=== PATIENT | female | born 1940 | race Caucasian/White ===

== ENCOUNTER → 2016-06-17 | Outpatient (CLI) | payer MEDICARE, OTHER | LOC: GMAJ 10:46 | PROVIDERS: ATTEND Family Medicine | DX: E03.8 Other specified hypothyroidism (principal) ==

== ENCOUNTER → 2016-11-06 | Outpatient (CLI) | payer MEDICARE, OTHER | END | disposition home or self-care (01) | LOC: GMAJ 10:29 | PROVIDERS: ATTEND Family Medicine | DX: E03.8 Other specified hypothyroidism (principal) ==

== ENCOUNTER → 2017-07-16 | Outpatient (CLI) | payer MEDICARE, OTHER | LOC: GMAJ 10:13 | PROVIDERS: ATTEND Family Medicine | DX: E03.8 Other specified hypothyroidism (principal) ==

== ENCOUNTER → 2018-07-15 | Outpatient (CLI) | payer MEDICARE, OTHER | LOC: GMAJ 11:07 | PROVIDERS: ATTEND Family Medicine | DX: E03.8 Other specified hypothyroidism (principal) ==

== ENCOUNTER → 2018-07-21 | Outpatient (CLI) | payer MEDICARE, OTHER ==
--- NOTE | 2018-07-22 16:14 | MAM ---
EXAM DESCRIPTION: 3D Screening BILATERAL : Digital Mammography. CLINICAL HISTORY: 77 years Female SCREEN . No complaints. No personal history of breast cancer. Mother with breast cancer. Childbirth. Postmenopausal 29 years. Hormone replacement 5 or more years ago. Prior benign left breast biopsy. Lifetime risk of developing breast cancer (Tyrer-Cuzick model)(%): 5.6. COMPARISON: 2-D digital screening bilateral mammography July 22, 2015.. TECHNIQUE: Bilateral CC and MLO projection full-field images, digital tomosynthesis mammographic technique. Bilateral digital 2-D full-field MLO images. CAD not available for tomosynthesis or 2-D images. FINDINGS: The breast parenchymal density pattern is: Scattered areas of fibroglandular density. No skin thickening or nipple retraction. Bilateral vascular calcifications. Bilateral solitary microcalcifications. Slight increase in calcifications bilaterally.. No new focal, stellate mass or density, focal asymmetry , and no suspicious microcalcifications bilaterally. Stable mammograms compared to prior study. Taking into account, differences in mammographic technique. IMPRESSION: Benign exam. BIRAD CATEGORY: 2 BENIGN FINDINGS. RECOMMENDATIONS: FOLLOW UP: Routine digital bilateral mammographic screening, one year interval from June 2018. Written communication explaining the IMPRESSION and follow-up, will be mailed to the patient and referring health care provider. According to the [employer], yearly mammograms are recommended starting at age 40 and continuing as long as a woman is in good health. Any breast change noted on a breast self-exam should be reported promptly to the patient's healthcare provider. Breast MRI is recommended for women with an approximately 20-25% or greater lifetime risk of breast cancer, including women with a strong family history of breast or ovarian cancer and women who have been treated for Hodgkin's disease. A negative mammographic report should not delay tissue diagnosis in patients with significant clinical history or physical findings. Extremely dense breast tissue limits the sensitivity of digital mammography. Electronically signed by: Genaro Uriostegui MD 07/22/2018 4:11 PM WHISKEY REGAUGER
== END ==
LOC: MAMMO 10:30
PROVIDERS: ATTEND Family Medicine
DX: Z12.31 Encounter for screening mammogram for malignant neoplasm of breast (principal)

== ENCOUNTER 2018-08-06 21:09 | Emergency (ER) | payer MEDICARE, OTHER ==
--- NOTE | 2018-08-06 22:25 | ED.PDOC ---
History of Present Illness - General Chief Complaint: Blood Pressure Problem Time Seen by Provider: 08/06/18 22:19 Source: patient, RN notes reviewed, Vital Signs reviewed Exam Limitations: no limitations - History of Present Illness Initial Comments: c/o high BP at approx 1930 tonight with SBP peaking around 180. Her face felt flushed & she had generalized weakness for about 45 minutes. Otherwise no other symptoms. Feels better now. No missed meds or dose changes. Was working out in the yard earlier today. Severity: moderate Improving Factors: nothing Worsening Factors: nothing Associated Symptoms: weakness Allergies/Adverse Reactions: Allergies Codeine Allergy (Verified 02/14/16 01:18) Doxycycline [From Vibramycin] Allergy (Verified 02/14/16 01:18) Fenofibrate [From Tricor] Allergy (Verified 02/14/16 01:18) Penicillins Allergy (Verified 02/14/16 01:18) Simvastatin [From Zocor] Allergy (Verified 02/14/16 01:18) Streptomycin Allergy (Verified 02/14/16 01:18) Verapamil Allergy (Verified 02/14/16 01:18) Home Medications: Ambulatory Orders Buspirone HCl 5 mg PO BID 06/24/12 Esomeprazole Magnesium [Nexium] 40 mg PO DAILY 06/24/12 l-Methylfolate W/ Vitamin B6-V [Metanx] 1 ea PO BEDTIME 06/24/12 Irbesartan-Hydrochlorothiazide [Avalide 300-12.5 mg] 1 tab PO DAILY 11/28/13 Levothyroxine Sodium [Synthroid] 88 mcg PO DAILY 11/28/13 ALPRAZolam [Xanax] 0.25 mg PO TID PRN 02/06/15 Cetirizine HCl Syrup [Zyrtec Syrup] 2 tsp PO PRN PRN 02/06/15 Cephalexin Monohydrate [Keflex] 500 mg PO QID #40 cap 02/14/16 Review of Systems - Review of Systems Constitutional: States: see HPI EENTM: States: no symptoms reported Respiratory: States: no symptoms reported Cardiology: States: no symptoms reported Gastrointestinal/Abdominal: States: no symptoms reported Genitourinary: States: no symptoms reported Musculoskeletal: States: no symptoms reported Skin: States: no symptoms reported Neurological: States: see HPI Endocrine: States: no symptoms reported Hematologic/Lymphatic: States: no symptoms reported Past Medical History (General) - Patient Medical History Hx Seizures: No Hx Stroke: No Hx Dementia: No Hx Asthma: No Hx of COPD: No Hx Cardiac Disorders: No Hx Congestive Heart Failure: No Hx Pacemaker: No Hx Hypertension: Yes Hx Thyroid Disease: Yes Hx Diabetes: No Hx Gastroesophageal Reflux: No Hx Renal Disease: No Hx Cancer: Yes - leukemia Hx of HIV: No Hx Hepatitis C: No Hx MRSA: No - Vaccination History Hx Tetanus, Diphtheria Vaccination: No Hx Influenza Vaccination: No Hx Pneumococcal Vaccination: Yes - Social History Hx Tobacco Use: No Hx Chewing Tobacco Use: No Hx Alcohol Use: No Hx Substance Use: No Hx Substance Use Treatment: No Hx Depression: No Hx Physical Abuse: No Hx Emotional Abuse: No Hx Suspected Abuse: No - Female History Patient : No Family Medical History - Family History Father Living Status: Hx Family Diabetes: Yes Hx Family Cancer: Yes Physical Exam - Physical Exam General Appearance: Alert, Comfortable, No apparent distress Ears, Nose, Throat: hearing grossly normal, other - moist mucosa Neck: supple, normal inspection Respiratory: lungs clear, normal breath sounds Cardiovascular/Chest: regular rate, rhythm, no edema, no JVD Gastrointestinal/Abdominal: non tender, soft, no organomegaly Extremity: normal range of motion, normal inspection, no pedal edema 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 Feels well. SBP 156. We discussed her presentation & options for treatment this weekend. She declines alteration of her meds. She will f/u with Dr. Sanders on Wednesday. - Results/Orders Results/Orders: K 3.3 Glu 133 Tr nml - EKG/XRAY/CT EKG: Sinus, no ST T wave changes - NSR at 85; nml axis, intervals, ST segments & Twaves; poor R wave progression Departure - Departure Clinical Impression: Essential hypertension, Hypokalemia, Weakness Time of Disposition: 23:19 Disposition: Discharge to Home or Self Care Condition: Good Departure Forms: ED Discharge - Pt. Copy, Patient Portal Self Enrollment Instructions: DI for High Blood Pressure Referrals: Jhony Sanders MD [Primary Care Provider] - 08/08/18 Home Medications: Ambulatory Orders Buspirone HCl 5 mg PO BID 06/24/12 Esomeprazole Magnesium [Nexium] 40 mg PO DAILY 06/24/12 l-Methylfolate W/ Vitamin B6-V [Metanx] 1 ea PO BEDTIME 06/24/12 Irbesartan-Hydrochlorothiazide [Avalide 300-12.5 mg] 1 tab PO DAILY 11/28/13 Levothyroxine Sodium [Synthroid] 88 mcg PO DAILY 11/28/13 ALPRAZolam [Xanax] 0.25 mg PO TID PRN 02/06/15 Cetirizine HCl Syrup [Zyrtec Syrup] 2 tsp PO PRN PRN 02/06/15 Cephalexin Monohydrate [Keflex] 500 mg PO QID #40 cap 02/14/16
[2018-08-06] MEDS ORDERED: POTASSIUM CHLORIDE 20 MEQ TAB PO ONE (23:14)
[2018-08-06 23:19] VITALS: TEMP 98.6
[2018-08-06 23:25] VITALS: BP 170/69; O2SAT 97
== END 2018-08-06 23:26 | disposition home or self-care (01) ==
LOC: ER 21:09
DX: I10 Essential (primary) hypertension (principal); E87.6 Hypokalemia; R53.1 Weakness; E07.9 Disorder of thyroid, unspecified; Z79.899 Other long term (current) drug therapy; Z85.6 Personal history of leukemia; Z88.5 Allergy status to narcotic agent; Z88.1 Allergy status to other antibiotic agents; Z88.0 Allergy status to penicillin

== ENCOUNTER → 2018-11-01 | Outpatient (CLI) | payer MEDICARE, OTHER ==
--- NOTE | 2018-11-02 09:03 | CT ---
EXAM: Abdoment/Pelvis w/o Contrast CLINICAL HISTORY: Asymptomatic microscopic hematuria COMPARISON STUDY: CT abdomen pelvis with contrast April 15, 2014 TECHNIQUE: Non-oral, non-IV contrast CT images were obtained through the abdomen and pelvis. Coronal reconstructions were acquired. FINDINGS: The visible portion of the chest shows clear lungs. The heart is not enlarged. The aorta is non-dilated. Solid organ evaluation is limited without IV contrast administration. The unenhanced images of the liver, spleen, pancreas, adrenal glands and kidneys demonstrate no visible abnormality. The gallbladder is absent. Bowel evaluation is limited without oral contrast administration. There is no bowel obstruction/dilatation. The appendix is visible and negative. There are no mesenteric inflammatory changes. The aorta is not dilated and has moderate calcified atherosclerotic plaque. If inferior vena cava and retroperitoneum are negative. There is no lymphadenopathy in the retroperitoneum, pelvis, mesentery or inguinal regions. The uterus is absent. There is a circumscribed low density in the left adnexa that measures 4.4 x 3.6 cm and has internal Hounsfield density measurement of less than 2. This is consistent with a benign ovarian cyst although slightly larger than 2014. There are no blastic or lytic osseous lesions. Moderate degenerative disc changes are present in the lower thoracic and lower lumbar spine. CONCLUSION: 1. No acute abnormality. No lymphadenopathy. 2. Degenerative changes of the lower thoracic and lower lumbar spine. 3. Slight enlargement of the left ovarian cyst requires no further imaging evaluation. This exam was performed according to our departmental dose-optimization program, which includes automated exposure control, adjustment of the mA and/or kV according to patient size and/or use of iterative reconstruction technique. . Electronically signed by: Corbin Graham MD 11/02/2018 9:01 AM CDT
== END ==
LOC: CT 09:00
PROVIDERS: ATTEND Family Medicine
DX: R31.21 Asymptomatic microscopic hematuria (principal); N83.202 Unspecified ovarian cyst, left side; M51.34 Other intervertebral disc degeneration, thoracic region; M51.36 Other intervertebral disc degeneration, lumbar region

== ENCOUNTER 2019-04-15 02:50 | Emergency (ER) | payer MEDICARE, OTHER ==
[2019-04-15 03:06] VITALS: TEMP 97.5
[2019-04-15] MEDS ORDERED: SODIUM CHLORIDE 0.9% 1000ML 1,000 ML IVS PRN (03:33)
--- NOTE | 2019-04-15 03:39 | ED.PDOC ---
History of Present Illness - General Chief Complaint: Trauma Stated Complaint: fell, unable to void, dizzy Time Seen by Provider: 04/15/19 03:25 Source: patient, RN notes reviewed, Vital Signs reviewed, family Exam Limitations: no limitations - History of Present Illness Initial Comments: Pt states she has had urinary frequency, dysuria and urgency for 3 days. She was seen in clinic for this yesterday and diagnosed with UTI and placed on antibiotics. 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 On the way back to bed she felt dizzy and stumbled over a portable heater on the ground and fell. Denies LOC. Has laceration to right forehead and pain to right cheek area. Denies OVALLE, neck pain or back pain. Denies chest pain, palpitations, SOB prior to falling. Unknown last tetanus. Allergies/Adverse Reactions: Allergies Azithromycin [From Z-Farhad] Allergy (Verified 04/15/19 04:09) Hives Codeine Allergy (Verified 04/15/19 04:09) Doxycycline [From Vibramycin] Allergy (Verified 04/15/19 04:09) Fenofibrate [From Tricor] Allergy (Verified 04/15/19 04:09) Penicillins Allergy (Verified 04/15/19 04:09) Simvastatin [From Zocor] Allergy (Verified 04/15/19 04:09) Streptomycin Allergy (Verified 04/15/19 04:09) Verapamil Allergy (Verified 04/15/19 04:09) Home Medications: Ambulatory Orders Buspirone HCl 5 mg PO BID 06/24/12 Irbesartan-Hydrochlorothiazide [Avalide 300-12.5 mg] 1 tab PO DAILY 11/28/13 Levothyroxine Sodium [Synthroid] 88 mcg PO DAILY 11/28/13 ALPRAZolam [Xanax] 0.25 mg PO TID PRN 02/06/15 Albuterol 2 mg/5 ml [Proventil] 60 ml PO 04/15/19 Carvedilol 3.125 mg PO BID 04/15/19 Folic Acid-Vitamin B6-Vitamin [Folbee 2.5-25-1 mg] DAILY 04/15/19 Montelukast [Singulair] 10 mg PO DAILY 04/15/19 Pantoprazole Sodium 40 mg PO DAILY 04/15/19 Review of Systems - Review of Systems Constitutional: Denies: chills, fever, weakness EENTM: Denies: blurred vision, nose congestion, throat pain Respiratory: Denies: cough, short of breath, stridor Cardiology: Denies: chest pain, edema, palpitations, syncope Gastrointestinal/Abdominal: States: nausea. Denies: abdominal pain, vomiting Genitourinary: States: dysuria, frequency, hematuria Musculoskeletal: Denies: back pain Skin: States: other - forehead laceration Neurological: Denies: anxiety, headache, weakness Endocrine: States: no symptoms reported Hematologic/Lymphatic: States: no symptoms reported All other Systems: Reviewed and Negative Past Medical History (General) - Patient Medical History Hx Seizures: No Hx Stroke: No Hx Dementia: No Hx Asthma: No Hx of COPD: No Hx Cardiac Disorders: No Hx Congestive Heart Failure: No Hx Pacemaker: No Hx Hypertension: Yes Hx Thyroid Disease: Yes - removed Hx Diabetes: No Hx Gastroesophageal Reflux: No Hx Renal Disease: No Hx Cancer: Yes - leukemia Hx of HIV: No Hx Hepatitis C: No Hx MRSA: No - Vaccination History Hx Tetanus, Diphtheria Vaccination: No Hx Influenza Vaccination: No Hx Pneumococcal Vaccination: Yes - Social History Hx Tobacco Use: No Hx Chewing Tobacco Use: No Hx Alcohol Use: No Hx Substance Use: No Hx Substance Use Treatment: No Hx Depression: No Hx Physical Abuse: No Hx Emotional Abuse: No Hx Suspected Abuse: No - Female History Patient : No - Triage Comment ED Triage Comment: Pt reports she has been having trouble voiding for last 2-3 days. Pt was seen in [facility] yesterday and was told she has a UTI. She states she is still having trouble voiding and getting dizzy and nauseated. Pt got up to BR this a.m., she was dizzy lost her balance and fell hitting her head on edge of dresser. Pt obtained a 2cm superficial lac to Rt eyebrow, and has a smal circular bruise to cheekbone area. Family Medical History - Family History Father Living Status: Hx Family Diabetes: Yes Hx Family Cancer: Yes Physical Exam - Physical Exam General Appearance: Alert, Comfortable, No apparent distress, Well Groomed Eye Exam: bilateral normal - PERRL, EOMI Ears, Nose, Throat: other - No dental pain. No intraoral injury seen. TTP right maxilla umder right eye Neck: non-tender, full range of motion, supple, other - No C, T, L spine tenderness Respiratory: chest non-tender, lungs clear, normal breath sounds, no respiratory distress, no accessory muscle use Cardiovascular/Chest: regular rate, rhythm, no edema, no murmur Gastrointestinal/Abdominal: non tender, soft, no pulsatile mass Back Exam: normal inspection, no CVA tenderness, no vertebral tenderness Extremity: normal range of motion, non-tender, other - FROM in all extremities w/o pain. 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 No active bleeding Progress - Progress Progress: 04/15/19 05:49 Pt presents for fall at home. Has had urinary frequency and urgency for a few days and started on abx for UTI in clinic. Tonight, she became dizzy walking back from bathroom and tripped over heated and fell. CT's performed to evaluate for ICH and fracture and are negative. Labs reassuring. I have irrigated and approximated laceration. Pt is ambulatory in ED without difficulty and feels comfortable going home. She is urinating well with no signs of urinary retention on bedside US. Will f/u with pcp in 1-2 days for recheck. SRP given. - Results/Orders Results/Orders: CLINICAL HISTORY: The patient is 78 years old and is Female; trauma TECHNIQUE: Axial computed tomography images of the head/brain without intravenous contrast. Sagittal and coronal reformatted images were created and reviewed. This CT exam was performed using one or more of the following dose reduction techniques: automated exposure control, adjustment of the mA and/or kV according to patient size, and/or use of iterative reconstruction technique. COMPARISON: No relevant prior studies available. FINDINGS: BRAIN: Unremarkable. The mendoza-white matter differentiation is preserved . No hemorrhage. No significant white matter disease. No edema. No extra-axial fluid collections. VENTRICLES: Unremarkable. No ventriculomegaly. BONES/JOINTS: No acute fracture. SOFT TISSUES: Unremarkable. SINUSES: Unremarkable as visualized. No acute sinusitis. MASTOID AIR CELLS: Unremarkable as visualized. No mastoid effusion. ORBITS: Unremarkable as visualized. IMPRESSION: No acute intracranial findings. EXAM: CT Cervical Spine Without Intravenous Contrast CLINICAL HISTORY: The patient is 78 years old and is Female; trauma TECHNIQUE: Axial computed tomography images of the cervical spine without intravenous contrast. Sagittal and coronal reformatted images were created and reviewed. This CT exam was performed using one or more of the following dose reduction techniques: automated exposure control, adjustment of the mA and/or kV according to patient size, and/or use of iterative reconstruction technique. COMPARISON: No relevant prior studies available. FINDINGS: VERTEBRAE: The vertebral body heights and alignment are maintained. No acute fracture. DISCS/SPINAL CANAL/NEURAL FORAMINA: Mild multilevel degenerative change of the spine with osteophyte formation and intervertebral disc space narrowing is present. There is no significant canal stenosis. SOFT TISSUES: The soft tissues are normal. LUNG APICES: The lung apices are clear. IMPRESSION: No fracture or malalignment of the cervical spine. EXAM: XR Chest, 1 View CLINICAL HISTORY: The patient is 78 years old and is Female; dizzy TECHNIQUE: Frontal view of the chest. COMPARISON: No relevant prior studies available. FINDINGS: LUNGS: Unremarkable. No consolidation. PLEURAL SPACE: Unremarkable. No pneumothorax. HEART: Unremarkable. No cardiomegaly. MEDIASTINUM: Unremarkable. BONES/JOINTS: Unremarkable. IMPRESSION: No acute cardiopulmonary process. EXAM: CT Maxillofacial Without Intravenous Contrast CLINICAL HISTORY: The patient is 78 years old and is Female; trauma TECHNIQUE: Axial computed tomography images of the face without intravenous contrast. Sagittal and coronal reformatted images were created and reviewed. This CT exam was performed using one or more of the following dose reduction techniques: automated exposure control, adjustment of the mA and/or kV according to patient size, and/or use of iterative reconstruction technique. COMPARISON: No relevant prior studies available. FINDINGS: BONES/JOINTS: The orbital floors and palomino are intact. The zygomatic arches and pterygoid plates are intact. The visualized maxilla and mandible are intact. SOFT TISSUES: Minimal right cheek soft tissue swelling is present. ORBITS: The globes, extraocular muscles, and optic nerve complexes are within normal limits. SINUSES: The visualized paranasal sinuses are clear. No air-fluid levels. NASAL CAVITY/SEPTUM: The nasal bones are intact. IMPRESSION: No acute facial fracture. Minimal right cheek soft tissue swelling. 04/15/19 03:32 Nurse to gather supplies .ONCE Wound/Incision:Care PRN 04/15/19 03:33 Sodium Chloride 0.9% 1000ML [Ns 1000 ml] 1,000 ml IVS .QD 04/15/19 03:45 EKG .ONCE Laboratory Results - last 24 hr 04/15/19 04/15/19 04/15/19 03:25 03:40 03:40 WBC 5.4 RBC 3.48 L Hgb 10.7 L Hct 30.6 L MCV 87.9 MCH 30.7 MCHC 34.9 RDW 13.7 Plt Count 146 MPV 7.4 Absolute Neuts (auto) 4.40 Absolute Lymphs (auto) 0.50 L Absolute Monos (auto) 0.40 Absolute Eos (auto) 0.10 Absolute Basos (auto) 0.00 Neutrophils % 82.1 H Lymphocytes % 9.7 L Monocytes % 6.5 Eosinophils % 1.2 Basophils % 0.5 Sodium 134 L Potassium 3.4 L Chloride 95 L Carbon Dioxide 24 Anion Gap 18.4 H BUN 14 Creatinine 1.05 BUN/Creatinine Ratio 13.3 Random Glucose 142 H Serum Osmolality 271.1 L Calcium 9.0 Total Bilirubin 1.8 H AST 25 ALT 19 Alkaline Phosphatase 67 Troponin I Serum Total Protein 7.3 Albumin 3.9 Globulin 3.4 Albumin/Globulin Ratio 1.1 Urine Color Dk yellow H Urine Appearance Clear Urine pH 6.5 Ur Specific [place] 1.025 Urine Protein 30 Urine Glucose (UA) Negative Urine Ketones 15 H Urine Blood Moderate H Urine Nitrite Negative Urine Bilirubin Moderate Urine Urobilinogen 1.0 Ur Leukocyte Esterase Negative Urine RBC 5-10 H Urine WBC 1-3 Ur Epithelial Cells 0-1 Urine Bacteria Rare Urine Mucus Trace 04/15/19 03:40 WBC RBC Hgb Hct MCV MCH MCHC RDW Plt Count MPV Absolute Neuts (auto) Absolute Lymphs (auto) Absolute Monos (auto) Absolute Eos (auto) Absolute Basos (auto) Neutrophils % Lymphocytes % Monocytes % Eosinophils % Basophils % Sodium Potassium Chloride Carbon Dioxide Anion Gap BUN Creatinine BUN/Creatinine Ratio Random Glucose Serum Osmolality Calcium Total Bilirubin AST ALT Alkaline Phosphatase Troponin I 0.02 Serum Total Protein Albumin Globulin Albumin/Globulin Ratio Urine Color Urine Appearance Urine pH Ur Specific [place] Urine Protein Urine Glucose (UA) Urine Ketones Urine Blood Urine Nitrite Urine Bilirubin Urine Urobilinogen Ur Leukocyte Esterase Urine RBC Urine WBC Ur Epithelial Cells Urine Bacteria Urine Mucus - EKG/XRAY/CT EKG: Sinus Comments: nsr, rate 71, normal intervals, no ST abnormality Procedures - Laceration/Wound Repair Right Face Wound Length (cm): 2 Wound's Depth, Shape: superficial, linear Wound Explored: clean Irrigated w/ Saline (cc's): 20 Betadine Prep?: No Wound Repaired With: dermabond Progress: 2 cm linear superficial laceration that is horizontal and at level of eyebrow. Irrigated and approximated with dermabond with no complications. Departure - Departure Clinical Impression: Dizziness Closed head injury Qualifiers: Encounter type: initial encounter Qualified Code(s): S09.90XA - Unspecified injury of head, initial encounter Facial laceration Qualifiers: Encounter type: initial encounter Qualified Code(s): S01.81XA - Laceration without foreign body of other part of head, initial encounter Fall Qualifiers: Encounter type: initial encounter Qualified Code(s): W19.XXXA - Unspecified fall, initial encounter Time of Disposition: 05:52 Disposition: Discharge to Home or Self Care Condition: Good Departure Forms: ED Discharge - Pt. Copy, Patient Portal Self Enrollment Instructions: DI for Trauma, Laceration Repair With Glue (DC) Diet: resume usual diet Activity: increase activity as tolerated Referrals: Jhony Sanders MD [Primary Care Provider] - 1-2 Days Home Medications: Ambulatory Orders Buspirone HCl 5 mg PO BID 06/24/12 Irbesartan-Hydrochlorothiazide [Avalide 300-12.5 mg] 1 tab PO DAILY 11/28/13 Levothyroxine Sodium [Synthroid] 88 mcg PO DAILY 11/28/13 ALPRAZolam [Xanax] 0.25 mg PO TID PRN 02/06/15 Albuterol 2 mg/5 ml [Proventil] 60 ml PO 04/15/19 Carvedilol 3.125 mg PO BID 04/15/19 Folic Acid-Vitamin B6-Vitamin [Folbee 2.5-25-1 mg] DAILY 04/15/19 Montelukast [Singulair] 10 mg PO DAILY 04/15/19 Pantoprazole Sodium 40 mg PO DAILY 04/15/19 Comments: Continue your antibiotic for urine infection
--- NOTE | 2019-04-15 04:56 | CT ---
EXAM: CT Cervical Spine Without Intravenous Contrast CLINICAL HISTORY: The patient is 78 years old and is Female; trauma TECHNIQUE: Axial computed tomography images of the cervical spine without intravenous contrast. Sagittal and coronal reformatted images were created and reviewed. This CT exam was performed using one or more of the following dose reduction techniques: automated exposure control, adjustment of the mA and/or kV according to patient size, and/or use of iterative reconstruction technique. COMPARISON: No relevant prior studies available. FINDINGS: VERTEBRAE: The vertebral body heights and alignment are maintained. No acute fracture. DISCS/SPINAL CANAL/NEURAL FORAMINA: Mild multilevel degenerative change of the spine with osteophyte formation and intervertebral disc space narrowing is present. There is no significant canal stenosis. SOFT TISSUES: The soft tissues are normal. LUNG APICES: The lung apices are clear. IMPRESSION: No fracture or malalignment of the cervical spine. Electronically signed by: Jillian Tobias MD 04/15/2019 4:54 AM DIVIDER OPERATOR
--- NOTE | 2019-04-15 04:57 | CT ---
EXAM: CT Head Without Intravenous Contrast CLINICAL HISTORY: The patient is 78 years old and is Female; trauma TECHNIQUE: Axial computed tomography images of the head/brain without intravenous contrast. Sagittal and coronal reformatted images were created and reviewed. This CT exam was performed using one or more of the following dose reduction techniques: automated exposure control, adjustment of the mA and/or kV according to patient size, and/or use of iterative reconstruction technique. COMPARISON: No relevant prior studies available. FINDINGS: BRAIN: Unremarkable. The mendoza-white matter differentiation is preserved . No hemorrhage. No significant white matter disease. No edema. No extra-axial fluid collections. VENTRICLES: Unremarkable. No ventriculomegaly. BONES/JOINTS: No acute fracture. SOFT TISSUES: Unremarkable. SINUSES: Unremarkable as visualized. No acute sinusitis. MASTOID AIR CELLS: Unremarkable as visualized. No mastoid effusion. ORBITS: Unremarkable as visualized. IMPRESSION: No acute intracranial findings. Electronically signed by: Jillian Tobias MD 04/15/2019 4:56 AM [facility]
--- NOTE | 2019-04-15 04:58 | CT ---
EXAM: CT Maxillofacial Without Intravenous Contrast CLINICAL HISTORY: The patient is 78 years old and is Female; trauma TECHNIQUE: Axial computed tomography images of the face without intravenous contrast. Sagittal and coronal reformatted images were created and reviewed. This CT exam was performed using one or more of the following dose reduction techniques: automated exposure control, adjustment of the mA and/or kV according to patient size, and/or use of iterative reconstruction technique. COMPARISON: No relevant prior studies available. FINDINGS: BONES/JOINTS: The orbital floors and palomino are intact. The zygomatic arches and pterygoid plates are intact. The visualized maxilla and mandible are intact. SOFT TISSUES: Minimal right cheek soft tissue swelling is present. ORBITS: The globes, extraocular muscles, and optic nerve complexes are within normal limits. SINUSES: The visualized paranasal sinuses are clear. No air-fluid levels. NASAL CAVITY/SEPTUM: The nasal bones are intact. IMPRESSION: No acute facial fracture. Minimal right cheek soft tissue swelling. Electronically signed by: Jillian Tobias MD 04/15/2019 4:57 AM [facility]
--- NOTE | 2019-04-15 04:59 | RAD ---
EXAM: XR Chest, 1 View CLINICAL HISTORY: The patient is 78 years old and is Female; dizzy TECHNIQUE: Frontal view of the chest. COMPARISON: No relevant prior studies available. FINDINGS: LUNGS: Unremarkable. No consolidation. PLEURAL SPACE: Unremarkable. No pneumothorax. HEART: Unremarkable. No cardiomegaly. MEDIASTINUM: Unremarkable. BONES/JOINTS: Unremarkable. IMPRESSION: No acute cardiopulmonary process. Electronically signed by: Jillian Tobias MD 04/15/2019 4:57 AM [facility]
[2019-04-15 05:05] VITALS: BP 115/99
[2019-04-15 05:09] VITALS: O2SAT 99
== END 2019-04-15 06:05 | disposition home or self-care (01) ==
LOC: ER 02:50
DX: S09.90XA Unspecified injury of head, initial encounter (principal); S01.111A Laceration without foreign body of right eyelid and periocular area, initial encounter; R42 Dizziness and giddiness; N39.0 Urinary tract infection, site not specified; I10 Essential (primary) hypertension; E89.0 Postprocedural hypothyroidism; Z85.6 Personal history of leukemia; Z79.899 Other long term (current) drug therapy; Z88.8 Allergy status to other drugs, medicaments and biological substances; Z88.1 Allergy status to other antibiotic agents; Z88.5 Allergy status to narcotic agent; Z88.0 Allergy status to penicillin; W01.0XXA Fall on same level from slipping, tripping and stumbling without subsequent striking against object, initial encounter; Y92.9 Unspecified place or not applicable
CPT/HCPCS: 70450; 70486; 71045; 72125; 80053; 81001; 84484; 85025; 93005; J7030

== ENCOUNTER → 2019-04-28 | Outpatient (CLI) | payer MEDICARE, OTHER | LOC: GMAJ 10:20 | PROVIDERS: ATTEND Family Medicine | DX: E03.8 Other specified hypothyroidism (principal); E78.00 Pure hypercholesterolemia, unspecified; I10 Essential (primary) hypertension ==

== ENCOUNTER → 2019-10-30 | Outpatient (CLI) | payer MEDICARE, OTHER | LOC: GMAJ 11:13 | PROVIDERS: ATTEND Family Medicine | DX: E03.8 Other specified hypothyroidism (principal); I10 Essential (primary) hypertension ==

== ENCOUNTER 2020-03-04 04:31 | Emergency (ER) | payer MEDICARE, OTHER ==
--- NOTE | 2020-03-04 04:55 | ED.PDOC ---
History of Present Illness - General Chief Complaint: Respiratory Problem Stated Complaint: test COVID + 2 days ago, lungs hurt Time Seen by Provider: 03/04/20 04:31 Source: patient, RN notes reviewed, Vital Signs reviewed Exam Limitations: no limitations - History of Present Illness Initial Comments: 79 yo F with hx of HTN and hypothyroid comes in with chc of right sided upper backpain. Was diagnosed with covid 2 days ago, but has been symptomatic since the 3rd - aprx 9 days. Denies cough or shortness of breath. no chest pain. Had a fever 103. no n/v, but does have diarrhea. she wanted to make sure her lungs were okay. Allergies/Adverse Reactions: Allergies Azithromycin [From Z-Farhad] Allergy (Verified 04/15/19 04:09) Hives Codeine Allergy (Verified 04/15/19 04:09) Doxycycline [From Vibramycin] Allergy (Verified 04/15/19 04:09) Fenofibrate [From Tricor] Allergy (Verified 04/15/19 04:09) Penicillins Allergy (Verified 04/15/19 04:09) Simvastatin [From Zocor] Allergy (Verified 04/15/19 04:09) Streptomycin Allergy (Verified 04/15/19 04:09) Verapamil Allergy (Verified 04/15/19 04:09) Home Medications: Ambulatory Orders Buspirone HCl 5 mg PO BID 06/24/12 Irbesartan-Hydrochlorothiazide [Avalide 300-12.5 mg] 1 tab PO DAILY 11/28/13 Levothyroxine Sodium [Synthroid] 88 mcg PO DAILY 11/28/13 ALPRAZolam [Xanax] 0.25 mg PO TID PRN 02/06/15 Albuterol 2 mg/5 ml [Proventil] 60 ml PO 04/15/19 Carvedilol 3.125 mg PO BID 04/15/19 Folic Acid-Vitamin B6-Vitamin [Folbee 2.5-25-1 mg] DAILY 04/15/19 Montelukast [Singulair] 10 mg PO DAILY 04/15/19 Pantoprazole Sodium 40 mg PO DAILY 04/15/19 Magnesium Oxide 400 mg PO DAILY #14 cap 03/04/20 Potassium Chloride Elixir [Kaochlor Liquid] 20 meq PO DAILY #300 ml 03/04/20 Review of Systems - Review of Systems Constitutional: States: chills, fever, malaise EENTM: Denies: eye pain, double vision, throat pain, throat swelling, mouth pain, mouth swelling Respiratory: Denies: cough, short of breath Cardiology: Denies: chest pain, palpitations, syncope Gastrointestinal/Abdominal: States: diarrhea. Denies: abdominal pain, nausea, vomiting Genitourinary: Denies: dysuria, frequency, hematuria Musculoskeletal: States: back pain. Denies: joint swelling, muscle pain, muscle stiffness, neck pain Skin: Denies: rash Neurological: Denies: headache, numbness, paresthesia, seizure, weakness Endocrine: Denies: increased urine, unexplained weight gain, unexplained weight loss Hematologic/Lymphatic: Denies: blood clots, easy bleeding, easy bruising Past Medical History (General) - Patient Medical History Hx Seizures: No Hx Stroke: No Hx Dementia: No Hx Asthma: No Hx of COPD: No Hx Cardiac Disorders: No Hx Congestive Heart Failure: No Hx Pacemaker: No Hx Hypertension: Yes Hx Thyroid Disease: Yes - removed Hx Diabetes: No Hx Gastroesophageal Reflux: No Hx Renal Disease: No Hx Cancer: Yes - leukemia Hx of HIV: No Hx Hepatitis C: No Hx MRSA: No - Vaccination History Hx Tetanus, Diphtheria Vaccination: No Hx Influenza Vaccination: Yes Hx Pneumococcal Vaccination: No - Social History Hx Tobacco Use: Yes Hx Chewing Tobacco Use: No Hx Alcohol Use: No Hx Substance Use: No Hx Substance Use Treatment: No Hx Depression: No Hx Physical Abuse: No Hx Emotional Abuse: No Hx Suspected Abuse: No - Female History Patient : No Family Medical History - Family History Father Living Status: Hx Family Diabetes: Yes Hx Family Cancer: Yes Physical Exam - Physical Exam General Appearance: Alert, Comfortable, No apparent distress, Well Developed, Well Groomed, Well Hydrated, Well Nourished Ears, Nose, Throat: hearing grossly normal, normal ENT inspection, normal pharynx Neck: non-tender, full range of motion, supple Respiratory: chest non-tender, lungs clear, normal breath sounds, no respiratory distress, no accessory muscle use Cardiovascular/Chest: normal peripheral pulses, regular rate, rhythm, no edema, no gallop, no JVD, no murmur Peripheral Pulses: radial,right: 2+, radial,left: 2+ Gastrointestinal/Abdominal: normal bowel sounds, non tender, soft Rectal Exam: deferred Back Exam: normal inspection, no CVA tenderness, no vertebral tenderness, other - right paravertebral tenderness on upper throacic. 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 Will give some magnesium for muscle pain. will check cxr to make sure she doesn't have a super imposed bacteria pneumonia. 03/04/20 06:07 due to pain being on right, not having worsening cough or shortness of breath and already being treated for pneumonia will not prescribe levaquin at this time. VSS. The data reviewed when caring for this patient included: nurse notes, prior records, etc. The history and assessments from nurses notes were reviewed and considered, and the patient's home medication list was also reviewed and considered. My assessment and the results of testing completed here in the ED were discussed with the patient. All questions were answered, and they express understanding of my assessment and the plan. She have been instructed to return if their symptoms worsen, and have been asked to follow up with their primary care physician to recheck today's presenting complaint. Strict return precautions given. I have reviewed medication, benefits, alternatives and side effects. Patient decided to proceed with medication.patient discharged home in stable condition. Elmira Gale DO #[id number] - Results/Orders Results/Orders: Laboratory Results WBC 7.5 K/mm3 (4.8-10.8) 03/04/20 05:07 RBC 3.32 M/mm3 (4.20-5.40) L 03/04/20 05:07 Hgb 10.2 gm/dL (12.0-16.0) L 03/04/20 05:07 Hct 29.2 % (36.0-47.0) L 03/04/20 05:07 MCV 88.2 fl (81.0-99.0) 03/04/20 05:07 MCH 30.8 pg (27.0-31.0) 03/04/20 05:07 MCHC 34.9 g/dL (33.0-37.0) 03/04/20 05:07 RDW 14.3 % (11.5-14.5) 03/04/20 05:07 Plt Count 149 K/mm3 (130-400) 03/04/20 05:07 MPV 6.6 fl (7.40-10.4) L 03/04/20 05:07 Absolute Neuts (auto) 6.70 K/uL (1.8-6.8) 03/04/20 05:07 Absolute Lymphs (auto) 0.60 K/uL (1.0-3.4) L 03/04/20 05:07 Absolute Monos (auto) 0.20 K/uL (0.2-0.8) 03/04/20 05:07 Absolute Eos (auto) 0.00 K/uL (0.0-0.4) 03/04/20 05:07 Absolute Basos (auto) 0.00 K/uL (0.0-0.1) 03/04/20 05:07 Neutrophils % 89.7 % (42.0-78.0) H 03/04/20 05:07 Lymphocytes % 7.9 % (20.0-50.0) L 03/04/20 05:07 Monocytes % 2.2 % (2.0-9.0) 03/04/20 05:07 Eosinophils % 0.0 % (1.0-5.0) L 03/04/20 05:07 Basophils % 0.2 % (0.0-2.0) 03/04/20 05:07 PT 10.7 SECONDS (9.0-10.9) 03/04/20 05:07 INR 1.08 (0.9-1.15) 03/04/20 05:07 PTT (SP) 27.7 SECONDS (21.8-31.6) 03/04/20 05:07 Sodium 134 mmol/L (135-145) L 03/04/20 05:07 Potassium 3.2 mmol/L (3.6-5.0) L 03/04/20 05:07 Chloride 93 mmol/L (101-111) L 03/04/20 05:07 Carbon Dioxide 27 mmol/L (21-31) 03/04/20 05:07 Anion Gap 17.2 (12-18) 03/04/20 05:07 BUN 17 mg/dL (7-18) 03/04/20 05:07 Creatinine 1.08 mg/dL (0.6-1.3) 03/04/20 05:07 BUN/Creatinine Ratio 15.7 (10-20) 03/04/20 05:07 Random Glucose 142 mg/dL (70-105) H 03/04/20 05:07 Serum Osmolality 272.2 mOsm/L (275-295) L 03/04/20 05:07 Calcium 8.3 mg/dL (8.4-10.2) L 03/04/20 05:07 Magnesium 1.7 mg/dL (1.8-2.5) L 03/04/20 05:07 Total Bilirubin 1.1 mg/dL (0.2-1.0) H 03/04/20 05:07 AST 33 IU/L (10-42) 03/04/20 05:07 ALT 22 IU/L (10-60) 03/04/20 05:07 Alkaline Phosphatase 57 IU/L (42-121) 03/04/20 05:07 Creatine Kinase 160 IU/L (26-140) H 03/04/20 05:07 Troponin I 0.03 ng/mL (0.01-0.05) 03/04/20 05:07 C-Reactive Protein 17.5 mg/dL (0-1.0) H* 03/04/20 05:07 B-Natriuretic Peptide 253.0 pg/ml (0-100) H* 03/04/20 05:07 Serum Total Protein 7.5 gm/dL (6.4-8.2) 03/04/20 05:07 Albumin 3.7 g/dl (3.2-5.5) 03/04/20 05:07 Globulin 3.8 gm/dL (2.3-3.5) H 03/04/20 05:07 Albumin/Globulin Ratio 1.0 (1.1-1.9) L 03/04/20 05:07 - EKG/XRAY/CT EKG: Sinus Comments: NSR, normal intefvals, LAD, no acute ischemic changes. XRAY: chest - possible small infiltrate on lll. Departure - Departure Clinical Impression: Hypokalemia Pneumonia Qualifiers: Pneumonia type: due to unspecified organism Laterality: left Lung location: lower lobe of lung Qualified Code(s): J18.9 - Pneumonia, unspecified organism ICD-10 Supporting Text: covid Time of Disposition: 05:58 Disposition: Discharge to Home or Self Care Departure Forms: ED Discharge - Pt. Copy, Patient Portal Self Enrollment Instructions: Pneumonia in Adults, Hypokalemia (DC), High Potassium Diet, Muscle Spasms (DC), Back Muscle Strain (DC) Referrals: Jhony Sanders MD [Primary Care Provider] - 1-2 Days Prescriptions: Potassium Chloride Elixir [Kaochlor Liquid] 20 meq PO DAILY #300 ml Magnesium Oxide 400 mg PO DAILY #14 cap Home Medications: Ambulatory Orders Buspirone HCl 5 mg PO BID 06/24/12 Irbesartan-Hydrochlorothiazide [Avalide 300-12.5 mg] 1 tab PO DAILY 11/28/13 Levothyroxine Sodium [Synthroid] 88 mcg PO DAILY 11/28/13 ALPRAZolam [Xanax] 0.25 mg PO TID PRN 02/06/15 Albuterol 2 mg/5 ml [Proventil] 60 ml PO 04/15/19 Carvedilol 3.125 mg PO BID 04/15/19 Folic Acid-Vitamin B6-Vitamin [Folbee 2.5-25-1 mg] DAILY 04/15/19 Montelukast [Singulair] 10 mg PO DAILY 04/15/19 Pantoprazole Sodium 40 mg PO DAILY 04/15/19 Magnesium Oxide 400 mg PO DAILY #14 cap 03/04/20 Potassium Chloride Elixir [Kaochlor Liquid] 20 meq PO DAILY #300 ml 03/04/20 Additional Instructions: continue your antibiotics (azithromycin), if symptoms worsen come back right away.
[2020-03-04] MEDS ORDERED: MAGNESIUM OXIDE 400 MG TAB PO ONE (05:02)
--- NOTE | 2020-03-04 05:49 | RAD ---
EXAM DESCRIPTION: Chest,1 View CLINICAL HISTORY: 79 years Female, back pain covid COMPARISON: 04/15/2019. TECHNIQUE: Single AP chest radiograph. FINDINGS: Questionable subtle peripheral opacities in the left mid and lower lung. No pneumothorax or pleural effusion. Normal cardiomediastinal contour. Normal osseous structures. IMPRESSION: 1. Questionable left mid and lower lung peripheral opacities, although this may represent overlapping breast shadow. Please note that chest radiographs have low sensitivity for detection of subtle groundglass opacities and the lungs may initially appear clear in the first few days of COVID infection.. Electronically signed by: Mason Caro MD 03/04/2020 5:48 AM CDT
[2020-03-04 06:33] VITALS: O2SAT 94
[2020-03-04 06:35] VITALS: BP 111/83; TEMP 97.1
[2020-03-04] MEDS ORDERED: MAGNESIUM OXIDE 400 MG TAB PO SCH (09:00)
== END 2020-03-04 06:10 | disposition home or self-care (01) ==
LOC: ER 04:31
DX: U07.1 COVID-19 (principal); J12.89 Other viral pneumonia; I10 Essential (primary) hypertension; E89.0 Postprocedural hypothyroidism; Z79.899 Other long term (current) drug therapy; Z87.891 Personal history of nicotine dependence; Z85.6 Personal history of leukemia

== ENCOUNTER 2020-03-05 12:25 | Inpatient (IN) | payer MEDICARE, OTHER ==
--- NOTE | 2020-03-05 12:36 | HP ---
SUPERVISING PHYSICIAN: Ziggy Ascencio MD CHIEF COMPLAINT: Shortness of breath. HISTORY OF PRESENT ILLNESS: This is an 79 female patient who was diagnosed with Covid-19 on 03/05/20. Initially, she did not have too many symptoms but over the last 2 to 3 days she has worsened to the point that she came to the Emergency Room yesterday. She has had fever up to 103. She was given potassium and magnesium yesterday and sent home. Today, she saw her primary care physician, Dr. Jhony Sanders, via Telemedicine and she was so weak she was actually in position at her home. She was having diarrhea, fever, cough with extreme weakness. Due to her 10-day history of progressively worsening symptoms, Dr. Sanders called me for admission to the hospital. She was directly admitted to the hospital in stable condition. Her initial vital signs show temperature 96.5, heart rate 83, blood pressure 117/53, respiratory rate of 20 to 22, oxygen saturation 94% on room air. Her labs showed WBC of 14,200 with hemoglobin 10.2, hematocrit 29.3. She had a left shift on her differential. Her PTT was 28.8 with a fibrinogen of 718, D-dimer 932. Sodium 132 with potassium 3.2, chloride 91, BUN 20, creatinine 1.24, serum osmolality 269.3, magnesium 1.8, total bilirubin 1.4 with an LD of 182, C-reactive protein of 36.9 and BNP of 711. Blood cultures were drawn. Chest x-ray was done that showed bilateral pulmonary infiltrates with large prominent vasculature. Chest CT showed: 1. Extensive multifocal pneumonia, imaging findings are commonly reported with Covid-19. 2. Severe atherosclerosis. 3. Other findings as per the CT report. PAST MEDICAL HISTORY: 1. Mild intermittent asthma. 2. Gastroesophageal reflux disease. 3. Hypertension. 4. Hyperlipidemia. 5. Hypothyroidism. 6. Osteoarthritis. 7. Leukemia. PAST SURGICAL HISTORY: 1. Cholecystectomy. 2. Thyroidectomy. 3. Bladder suspension. 4. Left breast biopsy. 5. Hysterectomy. 6. Cardiac catheterization. ALLERGIES: Codeine, Penicillin, Streptomycin. FAMILY HISTORY: Positive for type 2 diabetes and leukemia. SOCIAL HISTORY: Ms. Sher is . She has 5 children. She quit smoking many years ago. She denies any ETOH or illicit drug use. REVIEW OF SYSTEMS: GENERAL: Positive for fever, fatigue, negative for weight changes. HEENT: Negative for sinus symptoms, ear pain, vision changes, sore throat. RESPIRATORY: Positive for coughing, wheezing, shortness of breath CARDIAC: Negative for chest pain, palpitations, tachycardia. GI: Positive for nausea and diarrhea, negative for vomiting and constipation. GENITOURINARY: Negative for hematuria, dysuria, polyuria. SKIN: Negative for lesions or rashes. NEUROLOGICAL: Positive for headache, weakness, negative for seizures. . PHYSICAL EXAMINATION: VITAL SIGNS: Temperature 99.2, heart rate 89, blood pressure 101/46, respiratory rate 21, oxygen saturation 92% on 2 liter nasal cannula. GENERAL: This is an 79 year-old female patient who looks to be moderately ill. She is lying in her hospital bed. HEENT: Normocephalic and atraumatic. Pupils are equal and reactive. Oropharynx is clear. NECK: Supple without mass. . CHEST: Diminished breath sounds throughout with a few scattered rhonchi. Chest has equal rise and fall of the chest with inspiration and expiration.. CARDIOVASCULAR: Regular rate and rhythm. ABDOMEN: Soft, nontender, nondistended. Bowel sounds are positive. EXTREMITIES: No cyanosis, clubbing, or edema. NEUROLOGIC: She is awake, alert, and oriented x2. Cranial nerves II through XII are grossly intact as tested. Labs and films are as per the history of present illness. ASSESSMENT: 1. Covid-19 pneumonitis. . 2. Hypertension. 3. Hypothyroidism. 4. Mild intermittent asthma. 5. History of leukemia in remission. 6. Gastroesophageal reflux disease. 7. Osteoporosis. PLAN: The patient has been admitted to the hospital. We will initiate the pneumonia guidelines including azithromycin and Rocephin as well as aggressive breathing treatments, Decadron plus Remdesivir. Will also draw the routine labs and testing for Covid-19. Will monitor her labs. She will be on Lovenox; for DVT prophylaxis as well as a PPI for ulcer prophylaxis. Her home medications will be restarted as soon as they are verified. Her blood pressure has been somewhat on the low side so we may need to hold the blood pressure medications until she becomes well hydrated. Will continue to monitor closely and follow as needed. #[id number] [facility]
[2020-03-05] MEDS ORDERED: ONDANSETRON INJ 4 MG/2 ML VIAL IV PRN (12:51)
[2020-03-05] MEDS ORDERED: ACETAMINOPHEN 325 MG TAB PO PRN (12:51)
[2020-03-05] MEDS ORDERED: IBUPROFEN 400 MG TAB PO PRN (12:51)
[2020-03-05] MEDS ORDERED: SODIUM CHLORIDE 0.9% (FLUSH) 10 ML SYG IV PRN (12:51)
[2020-03-05] MEDS ORDERED: REMDESIVIR 200 MG in SODIUM CHLORIDE 0.9% 250ML 250 ML IVPB ONE (12:58)
[2020-03-05] MEDS ORDERED: ALBUTEROL INHALER 64 PUFF/8GM INH PRN (12:59)
[2020-03-05] MEDS ORDERED: AZITHROMYCIN 250 MG TAB PO SCH (13:00)
[2020-03-05] MEDS ORDERED: AZITHROMYCIN IV 500 MG in SODIUM CHLORIDE 0.9% 250ML 250 ML IVPB SCH (13:30)
[2020-03-05] MEDS: cefTRIAXone SODIUM 1 GM in SODIUM CHL 0.9% 50ML MIN-BAG+ 50 ML IVPB SCH (13:35)
[2020-03-05] MEDS: IV SET AND CAP CHANGE INJ INJ SCH (13:35)
--- NOTE | 2020-03-05 13:45 | CT ---
EXAM DESCRIPTION: Chest w/o Contrast CLINICAL HISTORY: covid COMPARISON: Chest radiograph 03/04/2020 TECHNIQUE: Multiple axial images of the chest without contrast. Multiplanar reconstructions were provided. This exam was performed according to our departmental dose-optimization program, which includes automated exposure control, adjustment of the mA and/or kV according to patient size and/or use of iterative reconstruction technique. FINDINGS: Lungs: Extensive multifocal bilateral peripheral groundglass consolidation. No pleural effusion or pneumothorax. The findings are greatest in the lingula and both lower lobes. Mediastinum: Limited evaluation due to lack of IV contrast. Severe atherosclerosis in the thoracic aorta and coronary arteries. Small hiatal hernia. The heart is normal in size. The trachea is unremarkable. Lymph nodes: There are no pathologically enlarged lymph nodes by CT size criteria. Chest wall and lower neck: No significant finding. Bones: Osteopenia. Multilevel thoracic spondylosis. Upper abdomen: Cholecystectomy clips. Atherosclerosis in the visualized abdominal aorta. IMPRESSION: 1. Extensive multifocal pneumonia. Imaging findings which are commonly reported with Covid 19 are present. 2. Severe atherosclerosis. 3. Other findings as above. Electronically signed by: Michael Graham MD 03/05/2020 1:43 PM CDT [id number]
--- NOTE | 2020-03-05 14:38 | RAD ---
EXAM DESCRIPTION: Chest x-ray,1 View CLINICAL HISTORY: 79 years Female, Pneumonia COMPARISON: Previous study March 04, 2020 TECHNIQUE: AP portable chest. FINDINGS: Heart size is large with prominent to increased pulmonary vascularity. Peripheral infiltrative changes in both lungs appear similar to previous study on the left and increased on the right worrisome for pneumonia. CT also showed bilateral peripheral pulmonary infiltrates with groundglass density and some patchy consolidative changes consistent with pneumonia No pulmonary mass or worrisome nodule. No pneumothorax or pleural effusion. Bones are unremarkable. IMPRESSION: Bilateral pulmonary infiltrates. Large heart with prominent ulnar vascularity. Electronically signed by: Eleno Huerta MD 03/05/2020 2:37 PM CDT
[2020-03-05] MEDS ORDERED: SODIUM CHLORIDE 0.9% 250ML 250 ML ONE (15:03)
[2020-03-05] MEDS: DEXAMETHASONE INJ 10 MG/ML VIAL IV SCH (15:21)
[2020-03-05] MEDS ORDERED: KCL 20 MEQ/NS 1,000 ML IVS ONE (15:23)
[2020-03-05] MEDS ORDERED: POTASSIUM CHLORIDE 20 MEQ TAB PO ONE (15:23)
[2020-03-05] MEDS ORDERED: AZITHROMYCIN IV 500 MG in SODIUM CHLORIDE 0.9% 250ML 250 ML IVPB ONE (16:43)
[2020-03-05] MEDS: ALBUTEROL INHALER 64 PUFF/8GM INH SCH ×2 (16:48→21:06)
[2020-03-05] MEDS ORDERED: POTASSIUM CHLORIDE 20 MEQ TAB ONE (18:16)
[2020-03-05] MEDS: AZITHROMYCIN IV 500 MG in SODIUM CHLORIDE 0.9% 250ML 250 ML IVPB SCH (18:35)
[2020-03-05] MEDS: GABAPENTIN 300 MG CAP PO SCH (21:24)
[2020-03-05] MEDS: guaiFENesin ER TAB 600 MG TAB PO SCH (21:24)
[2020-03-05] MEDS: SODIUM CHLORIDE 0.9% (FLUSH) 10 ML SYG IV SCH (21:25)
[2020-03-05] MEDS: busPIRone HCL 5 MG TAB PO SCH (21:25)
[2020-03-05] MEDS: ENOXAPARIN SODIUM 40 MG/0.4 ML SYG SUBCU SCH (21:25)
[2020-03-05] MEDS: CARVEDILOL 3.125 MG TAB PO SCH (22:47)
[2020-03-06] MEDS ORDERED: PANTOPRAZOLE SODIUM IV 40 MG VIAL ONE (05:30)
[2020-03-06] MEDS: LEVOTHYROXINE SODIUM 0.088 MG TAB PO SCH ×2 (05:31→09:06)
[2020-03-06] MEDS: PANTOPRAZOLE SODIUM IV 40 MG VIAL IV SCH (05:31)
--- NOTE | 2020-03-06 07:27 | RAD ---
: 1940. Technique: Portable AP upright chest x-ray. Comparison: Chest x-ray March 05, [address] Clinical history: covid. Heart size: Normal heart size. Lungs: Bilateral pulmonary infiltrates essentially unchanged. Pleura: No pleural effusion. No pneumothorax. Mediastinum and rosalia: Unremarkable. Skeletal: Unremarkable. Support tubings: None. Impression: 1. Stable follow-up consistent with viral pneumonia. Electronically signed by: Cedric Smith MD 03/06/2020 7:25 AM CDT
[2020-03-06] MEDS: ALBUTEROL INHALER 64 PUFF/8GM INH SCH ×4 (08:00→20:45)
[2020-03-06] MEDS: busPIRone HCL 5 MG TAB PO SCH ×2 (08:39→21:12)
[2020-03-06] MEDS: DEXAMETHASONE INJ 10 MG/ML VIAL IV SCH ×2 (08:39→09:36)
[2020-03-06] MEDS: BIFIDOBACTERIUM INFANTIS 4 MG CAP PO SCH (08:39)
[2020-03-06] MEDS: GABAPENTIN 300 MG CAP PO SCH ×2 (08:40→21:12)
[2020-03-06] MEDS: CARVEDILOL 3.125 MG TAB PO SCH ×2 (08:40→21:12)
[2020-03-06] MEDS: guaiFENesin ER TAB 600 MG TAB PO SCH ×2 (08:40→21:12)
[2020-03-06] MEDS: REMDESIVIR 100 MG in SODIUM CHLORIDE 0.9% 250ML 250 ML IVPB SCH (08:40)
[2020-03-06] MEDS: SODIUM CHLORIDE 0.9% (FLUSH) 10 ML SYG IV SCH ×2 (08:41→21:15)
[2020-03-06] MEDS: MONTELUKAST 10 MG TAB PO SCH (08:44)
[2020-03-06] MEDS ORDERED: BUDESONIDE/FORMOTEROL 160/4.5 60 PUFF/6 GM INH INH ONE (08:51)
[2020-03-06] MEDS ORDERED: AZITHROMYCIN IV 500 MG in SODIUM CHLORIDE 0.9% 250ML 250 ML IVPB SCH (09:00)
[2020-03-06] MEDS: AZITHROMYCIN IV 500 MG in SODIUM CHLORIDE 0.9% 250ML 250 ML IVPB SCH (10:50)
[2020-03-06] MEDS: cefTRIAXone SODIUM 1 GM in SODIUM CHL 0.9% 50ML MIN-BAG+ 50 ML IVPB SCH (12:58)
--- NOTE | 2020-03-06 16:02 | PN ---
SUPERVISING PHYSICIAN: Ziggy Ascencio MD DATE: 03/06/20 SUBJECTIVE: The patient is essentially doing pretty well. She has not had any complaints. She said she is a little bit short of breath, but not as bad as it was when she came in. She is just a little tired. No nausea, vomiting, diarrhea, or any other complaints. OBJECTIVE: VITAL SIGNS: She remains afebrile with temperature 98.2, pulse 74, blood pressure 98/51, heart rate 18, saturation 95% on 2 liters nasal cannula. GENERAL: The patient is resting comfortably. She does not seem to be in any distress. She is alert. CHEST: Lungs are clear to auscultation with no notable rales, rhonchi or wheezing. A little diminished towards the bases. HEART: Regular rate and rhythm. ABDOMEN: Soft, nontender. Positive bowel sounds. EXTREMITIES: No edema. NEUROLOGIC: Alert and oriented times three. LABORATORY: White count now normalized to 10,700, hemoglobin 9.3, hematocrit 26.6. Differential does show a left shift. Coagulation studies showed D-dimer down to 850, fibrinogen down to 668. Chemistries showed potassium 3.5, creatinine 1.01, magnesium a little low at 1.7. We will recheck magnesium again tomorrow. AST slightly elevated at 43. C-reactive protein is down a little bit from 36.9 to 32.8. RADIOLOGY: Chest x-ray this morning per radiologic interpretation showed stable chest consistent with viral pneumonia. ASSESSMENT: 1. COVID-19 pneumonitis. 2. Hypertension. 3. Hypothyroidism. 4. Mild intermittent asthma. 5. History of leukemia in remission. 6. Gastroesophageal reflux disease. 7. Osteoporosis. PLAN: We will continue to follow the patient. We will continue guidelines including azithromycin and Rocephin, Decadron, Remdesivir. She does remain on aggressive pulmonary hygiene. She is on DVT prophylaxis and proton pump inhibitor ulcer prophylaxis. We resumed her home medications. Hopefully, we will be able to discharge within the next 24 to 48 hours. Until then, we will continue to monitor and treat as needed. #[id number] [facility]
[2020-03-06] MEDS: ALPRAZolam 0.25 MG TAB PO PRN (21:07)
[2020-03-06] MEDS: ENOXAPARIN SODIUM 40 MG/0.4 ML SYG SUBCU SCH (21:12)
[2020-03-07] MEDS ORDERED: LEVOTHYROXINE SODIUM 0.088 MG TAB ONE (04:01)
[2020-03-07] MEDS: PANTOPRAZOLE SODIUM IV 40 MG VIAL IV SCH (06:07)
[2020-03-07] MEDS: LEVOTHYROXINE SODIUM 0.088 MG TAB PO SCH (06:07)
[2020-03-07] MEDS: ALBUTEROL INHALER 64 PUFF/8GM INH SCH ×4 (08:35→21:16)
[2020-03-07] MEDS: REMDESIVIR 100 MG in SODIUM CHLORIDE 0.9% 250ML 250 ML IVPB SCH (09:09)
[2020-03-07] MEDS: BIFIDOBACTERIUM INFANTIS 4 MG CAP PO SCH (09:10)
[2020-03-07] MEDS: busPIRone HCL 5 MG TAB PO SCH ×2 (09:10→20:28)
[2020-03-07] MEDS: GABAPENTIN 300 MG CAP PO SCH ×2 (09:10→20:28)
[2020-03-07] MEDS: guaiFENesin ER TAB 600 MG TAB PO SCH ×2 (09:10→20:28)
[2020-03-07] MEDS: DEXAMETHASONE INJ 10 MG/ML VIAL IV SCH (09:10)
[2020-03-07] MEDS: SODIUM CHLORIDE 0.9% (FLUSH) 10 ML SYG IV SCH ×2 (09:11→20:29)
[2020-03-07] MEDS: MONTELUKAST 10 MG TAB PO SCH (09:11)
[2020-03-07] MEDS: CARVEDILOL 3.125 MG TAB PO SCH ×2 (09:22→20:28)
[2020-03-07] MEDS: AZITHROMYCIN IV 500 MG in SODIUM CHLORIDE 0.9% 250ML 250 ML IVPB SCH (11:11)
[2020-03-07] MEDS: cefTRIAXone SODIUM 1 GM in SODIUM CHL 0.9% 50ML MIN-BAG+ 50 ML IVPB SCH (12:51)
[2020-03-07] MEDS: ENOXAPARIN SODIUM 40 MG/0.4 ML SYG SUBCU SCH (20:28)
--- NOTE | 2020-03-07 21:17 | PN ---
SUPERVISING PHYSICIAN: Ziggy Ascencio M.D. DATE: 03/07/20 SUBJECTIVE: The patient is doing well today. Her blood pressure is showing to be stable. Still a little low but we are holding her blood pressure medicine. She has had no complaints of nausea, vomiting or diarrhea. OBJECTIVE: VITAL SIGNS: Temperature 98, pulse 84, blood pressure 106/51, respirations 18, satting 95% on 2 liters nasal cannula. GENERAL: The patient is resting comfortably. She does not seem to be in any distress. She is alert. CHEST: Lungs are clear to auscultation with no notable rales, rhonchi or wheezing. A little diminished towards the bases. HEART: Regular rate and rhythm. ABDOMEN: Soft, nontender. Positive bowel sounds. EXTREMITIES: No edema. NEUROLOGIC: Alert and oriented times three. LABORATORY: White count 10,300, hemoglobin 9.1, hematocrit 26.7 which is showing to be fairly stable, platelet count 194,000. Differential does show a left shift. D-dimer is down to 823, fibrinogen is down to 502, PTT remains normal. Chemistries: C reactive protein now is 16.4 compared to 36.9 on admission. Electrolytes are showing to be within normal limits today. Creatinine is 0.88, magnesium is still a little low to 1.7. Will go ahead and replace that. Glucose was 214. LDL was a little elevated at 194 as well as CK at 156. MICROBIOLOGY: Blood cultures remain negative at 24 hours. RADIOLOGY: No additional radiographic studies. ASSESSMENT: 1. COVID-19 pneumonitis. 2. Hypertension. 3. Hypothyroidism. 4. Mild intermittent asthma. 5. History of leukemia in remission. 6. Gastroesophageal reflux disease. 7. Osteoporosis. PLAN: Will continue her current plan, again with azithromycin, Rocephin, Decadron, Remdesivir. She is on DVT prophylaxis as well as GI protection with PPI. Hopefully will be able to discharge within the next 24 to 48 hours. Until then will continue to monitor and treat as needed. #[id number] MTDD
[2020-03-08] MEDS ORDERED: PANTOPRAZOLE SODIUM TAB 40 MG PO ONE (04:22)
[2020-03-08] MEDS: LEVOTHYROXINE SODIUM 0.088 MG TAB PO SCH (06:13)
[2020-03-08] MEDS: PANTOPRAZOLE SODIUM TAB 40 MG PO SCH (06:13)
--- NOTE | 2020-03-08 06:14 | RAD ---
EXAM: XR Chest, 1 View CLINICAL HISTORY: covid infection TECHNIQUE: Frontal view of the chest. COMPARISON: 03/06/2020 FINDINGS: Lungs: There is significant increase in bilateral interstitial and airspace consolidation in a predominant peripheral distribution sparing the upper lobes. Pleural space: No pneumothorax or pleural effusion. Heart: Stable cardiac shadow. Mediastinum: No abnormality noted. Bones/joints: No osseous destruction or sclerosis noted. IMPRESSION: Worsening covid pneumonia. Electronically signed by: Jayashree Diallo MD 03/08/2020 6:13 AM CDT
[2020-03-08] MEDS ORDERED: SODIUM CHLORIDE 0.9% 250ML 250 ML ONE (07:08)
[2020-03-08] MEDS ORDERED: POTASSIUM CHLORIDE 20 MEQ TAB PO ONE (08:21)
[2020-03-08] MEDS ORDERED: MAGNESIUM SULFATE PREMIX 2GM 2 GM in PREMIX BAG 1 BAG IVPB ONE (08:21)
[2020-03-08] MEDS ORDERED: MAGNESIUM SULFATE PREMIX 2GM 50 ML IVPB ONE (09:17)
[2020-03-08] MEDS: DEXAMETHASONE INJ 10 MG/ML VIAL IV SCH (09:18)
[2020-03-08] MEDS: busPIRone HCL 5 MG TAB PO SCH ×2 (09:19→20:32)
[2020-03-08] MEDS: guaiFENesin ER TAB 600 MG TAB PO SCH ×2 (09:19→20:32)
[2020-03-08] MEDS: REMDESIVIR 100 MG in SODIUM CHLORIDE 0.9% 250ML 250 ML IVPB SCH (09:19)
[2020-03-08] MEDS: CARVEDILOL 3.125 MG TAB PO SCH ×2 (09:19→20:33)
[2020-03-08] MEDS: MONTELUKAST 10 MG TAB PO SCH (09:19)
[2020-03-08] MEDS: SODIUM CHLORIDE 0.9% (FLUSH) 10 ML SYG IV SCH ×2 (09:19→20:33)
[2020-03-08] MEDS: GABAPENTIN 300 MG CAP PO SCH ×2 (09:19→20:32)
[2020-03-08] MEDS: BIFIDOBACTERIUM INFANTIS 4 MG CAP PO SCH (09:19)
[2020-03-08] MEDS: ALBUTEROL INHALER 64 PUFF/8GM INH SCH ×4 (10:05→20:47)
[2020-03-08] MEDS: AZITHROMYCIN IV 500 MG in SODIUM CHLORIDE 0.9% 250ML 250 ML IVPB SCH (11:21)
[2020-03-08] MEDS: cefTRIAXone SODIUM 1 GM in SODIUM CHL 0.9% 50ML MIN-BAG+ 50 ML IVPB SCH (13:08)
[2020-03-08] MEDS: IV SET AND CAP CHANGE INJ INJ SCH (13:08)
--- NOTE | 2020-03-08 16:38 | PN ---
SUPERVISING PHYSICIAN: Ziggy Ascencio M.D. DATE: 03/08/20 SUBJECTIVE: The patient is sitting on the side of her bed. She is actually feeling much better, although she gets short of breath quite easily. No complaints of chest pain, nausea or vomiting. OBJECTIVE: VITAL SIGNS: Temperature 97.6, heart rate 71, blood pressure 96/58, respiratory rate 18. Oxygen saturation 97% on room air. CHEST: Diminished at the bases with a few expiratory wheezes. HEART: Regular rate and rhythm. NEUROLOGIC: Awake, alert and oriented times three. LABORATORY: WBC 8.6, hemoglobin 9, hematocrit 25.8. She has a left shift on her differential. Fibrinogen is 502, D-dimer 823, sodium 138, potassium 3.5, chloride 105, carbon dioxide 25, BUN 26, creatinine 0.84. Calcium 7.8, magnesium 1.6. RADIOLOGY: Chest x-ray is worsening Covid patient noted the gradual onset of. All other labs and films have been reviewed via the EMR. ASSESSMENT: 1. COVID-19 pneumonitis. 2. Hypertension. 3. Hypothyroidism. 4. Mild intermittent asthma. 5. History of leukemia in remission. 6. Gastroesophageal reflux disease. 7. Osteoporosis. PLAN: Will continue present supportive care. I have ordered an ambulation study and physical therapy for tomorrow. Hopefully she can be discontinued on her oxygen so she will not have to go home on 02. I am getting her some magnesium and potassium supplementation. I will do Covid labs and a chest x-ray in the morning. We will monitor closely and treat as needed. #[id number] MTDD
[2020-03-08] MEDS: ENOXAPARIN SODIUM 40 MG/0.4 ML SYG SUBCU SCH (20:33)
[2020-03-09] MEDS: PANTOPRAZOLE SODIUM TAB 40 MG PO SCH (06:04)
[2020-03-09] MEDS: LEVOTHYROXINE SODIUM 0.088 MG TAB PO SCH (06:04)
--- NOTE | 2020-03-09 07:27 | RAD ---
: 1940. Technique: Portable AP upright chest x-ray. Comparison: March 08, 2020 chest x-ray and March 05, [address] Clinical history: covid. Heart size: Heart size within normal limits. Lungs: Redemonstrated extensive bilateral infiltrates. There is increasing consolidation along the upper right costal margin. No other substantive change. Pleura: No pleural effusion. No pneumothorax. Mediastinum and rosalia: Unremarkable. Skeletal: Unremarkable. Support tubings: None. Impression: 1. Bilateral pneumonia worsening on the right. Electronically signed by: Cedric Smith MD 03/09/2020 7:26 AM CDT
[2020-03-09] MEDS: ALBUTEROL INHALER 64 PUFF/8GM INH SCH ×4 (09:15→23:00)
[2020-03-09] MEDS: DEXAMETHASONE INJ 10 MG/ML VIAL IV SCH (09:20)
[2020-03-09] MEDS: SODIUM CHLORIDE 0.9% (FLUSH) 10 ML SYG IV SCH ×2 (09:20→20:44)
[2020-03-09] MEDS: GABAPENTIN 300 MG CAP PO SCH ×2 (09:21→20:43)
[2020-03-09] MEDS: busPIRone HCL 5 MG TAB PO SCH ×2 (09:21→20:43)
[2020-03-09] MEDS: CARVEDILOL 3.125 MG TAB PO SCH ×2 (09:21→20:43)
[2020-03-09] MEDS: BIFIDOBACTERIUM INFANTIS 4 MG CAP PO SCH (09:21)
[2020-03-09] MEDS: guaiFENesin ER TAB 600 MG TAB PO SCH ×2 (09:21→20:43)
[2020-03-09] MEDS: MONTELUKAST 10 MG TAB PO SCH (09:21)
[2020-03-09] MEDS: REMDESIVIR 100 MG in SODIUM CHLORIDE 0.9% 250ML 250 ML IVPB SCH (09:22)
[2020-03-09] MEDS ORDERED: guaiFENesin ER TAB 600 MG TAB ONE (10:45)
[2020-03-09] MEDS: AZITHROMYCIN IV 500 MG in SODIUM CHLORIDE 0.9% 250ML 250 ML IVPB SCH (11:29)
[2020-03-09] MEDS: cefTRIAXone SODIUM 1 GM in SODIUM CHL 0.9% 50ML MIN-BAG+ 50 ML IVPB SCH (13:10)
[2020-03-09] MEDS: ALPRAZolam 0.25 MG TAB PO PRN ×2 (15:30→21:39)
--- NOTE | 2020-03-09 17:31 | PN ---
SUPERVISING PHYSICIAN: Ziggy Ascencio M.D. DATE: 03/09/20 SUBJECTIVE: The patient is sitting on the side of her bed. She is somewhat short of breath. She really wants to go home but I discussed with her that her chest x-ray was worse and that her respiratory effort will need to improve and we will need to get her off oxygen if possible prior to discharge. Respiratory is about the bedside and reiterated what I said. OBJECTIVE: VITAL SIGNS: Temperature 98.1, heart rate 68, blood pressure 145/69, respiratory rate 18. Oxygen saturation 95% on 1 liter nasal cannula. CHEST: Diminished throughout with a few rhonchi scattered throughout. She is tachypneic and slightly short of breath with any exertion. HEART: Regular rate and rhythm. GI: Abdomen soft, nondistended, non-tender. Bowel sounds are positive. NEUROLOGIC: Awake, alert and oriented times three. LABORATORY: WBC 5/4, hemoglobin 8.8, hematocrit 25.6. She does have a left shift on her differential. Fibrinogen is 497, D-dimer 713, Electrolytes are basically within normal limits with the exception of her calcium low at 7.9, LD is 186. C-reactive protein 8.9. MICROBIOLOGY: Preliminary blood cultures show no growth after 4 days. Sputum culture is pending. RADIOLOGY: Chest x-ray shows bilateral pneumonia, worsening on the right. All other labs and films have been reviewed via the EMR. ASSESSMENT: 1. COVID-19 pneumonitis. 2. Hypertension. 3. Hypothyroidism. 4. Mild intermittent asthma. 5. History of leukemia in remission. 6. Gastroesophageal reflux disease. 7. Osteoporosis. PLAN: We will continue present supportive care. I have ordered her routine Covid lab in the morning. I have encouraged good respiratory hygiene and encouraged the patient to use her incentive spirometry as much as she can. Hopefully, we can wean her off her oxygen and she can be discharged Wednesday or Wednesday. We will monitor closely and follow as needed. #[id number] [facility]
[2020-03-09] MEDS: ENOXAPARIN SODIUM 40 MG/0.4 ML SYG SUBCU SCH (20:44)
[2020-03-10] MEDS: PANTOPRAZOLE SODIUM TAB 40 MG PO SCH (06:10)
[2020-03-10] MEDS: LEVOTHYROXINE SODIUM 0.088 MG TAB PO SCH (06:10)
[2020-03-10] MEDS: ALBUTEROL INHALER 64 PUFF/8GM INH SCH ×4 (09:20→21:00)
[2020-03-10] MEDS: busPIRone HCL 5 MG TAB PO SCH ×2 (09:55→20:09)
[2020-03-10] MEDS: MONTELUKAST 10 MG TAB PO SCH (09:55)
[2020-03-10] MEDS: ALPRAZolam 0.25 MG TAB PO PRN ×2 (09:55→23:27)
[2020-03-10] MEDS: BIFIDOBACTERIUM INFANTIS 4 MG CAP PO SCH (09:55)
[2020-03-10] MEDS: DEXAMETHASONE INJ 10 MG/ML VIAL IV SCH (09:55)
[2020-03-10] MEDS: guaiFENesin ER TAB 600 MG TAB PO SCH ×2 (09:55→20:09)
[2020-03-10] MEDS: CARVEDILOL 3.125 MG TAB PO SCH ×2 (09:55→20:10)
[2020-03-10] MEDS: GABAPENTIN 300 MG CAP PO SCH ×2 (09:56→20:10)
[2020-03-10] MEDS: SODIUM CHLORIDE 0.9% (FLUSH) 10 ML SYG IV SCH ×2 (09:56→20:10)
[2020-03-10] MEDS ORDERED: MAGNESIUM SULFATE PREMIX 2GM 2 GM in PREMIX BAG 1 BAG IVPB ONE (10:20)
[2020-03-10] MEDS ORDERED: ENOXAPARIN SODIUM 40 MG/0.4 ML SYG SUBCU SCH (10:23)
[2020-03-10] MEDS ORDERED: MAGNESIUM SULFATE PREMIX 2GM 50 ML IVPB ONE (11:47)
[2020-03-10] MEDS: cefTRIAXone SODIUM 1 GM in SODIUM CHL 0.9% 50ML MIN-BAG+ 50 ML IVPB SCH (15:40)
[2020-03-10] MEDS: AZITHROMYCIN IV 500 MG in SODIUM CHLORIDE 0.9% 250ML 250 ML IVPB SCH (15:40)
[2020-03-10] MEDS ORDERED: ENOXAPARIN SODIUM 80 MG/0.8 ML SYG SUBCU ONE (19:21)
--- NOTE | 2020-03-10 20:06 | PN ---
SUPERVISING PHYSICIAN: Ziggy Ascencio MD DATE: 03/10/20 SUBJECTIVE: The patient is sitting incision on the side of her bed. She does feel quite a bit better although she is unable to go without her oxygen. She is having a difficult time coughing up any phlegm and she still has a dry, hacking cough, but she is doing well with her pulmonary hygiene. She denies chest pain, nausea or vomiting. OBJECTIVE: VITAL SIGNS: Temperature 97.8, heart rate 69, blood pressure 137/65, respiratory rate 18. Oxygen saturation 98% on 1 liter nasal cannula. CHEST: Diminished at the bases, otherwise clear to auscultation. HEART: Regular rate and rhythm. NEUROLOGIC: Awake, alert and oriented times three. LABORATORY: WBCs 4,300, hemoglobin 9.1, hematocrit 25.9. She does have a left shift on differential. Fibrinogen 455. D-dimer went up to 983. Electrolytes are basically within normal limits with exception of her calcium is low at 7.6 and magnesium is 1.7. C-reactive protein 7, LD 173. Liver enzymes otherwise within normal limits. MICROBIOLOGY: Final blood cultures show no growth after 5 days. Sputum culture is pending.All other labs and films have been reviewed via the EMR. ASSESSMENT: 1. COVID-19 pneumonitis. 2. Hypertension. 3. Hypothyroidism. 4. Mild intermittent asthma. 5. History of leukemia in remission. 6. Gastroesophageal reflux disease. 7. Osteoporosis. PLAN: We will continue present supportive care. Hopefully, we can titrate off her oxygen and she can be discharged in the next 24 to 48 hours. I have encouraged the patient to continue with good pulmonary hygiene. I have ordered routine lab and chest x-ray for in the morning. We will continue to monitor the patient closely and follow as needed. #[id number] MTDD
[2020-03-11] MEDS: LEVOTHYROXINE SODIUM 0.088 MG TAB PO SCH (06:11)
[2020-03-11] MEDS: PANTOPRAZOLE SODIUM TAB 40 MG PO SCH (06:11)
--- NOTE | 2020-03-11 07:11 | RAD ---
PROCEDURE:XR CHEST 1 VIEW HISTORY:covid COMPARISON: March 09, 2020 FINDINGS: The heart appears unremarkable. There are stable patchy infiltrates. There are no new infiltrates. There is no evidence for effusion or pneumothorax. The osseous structures and soft tissues are normal. IMPRESSION: Stable chest x-ray. Electronically signed by: Yovanny Smith MD 03/11/2020 7:09 AM CDT
[2020-03-11] MEDS: ALBUTEROL INHALER 64 PUFF/8GM INH SCH (09:30)
[2020-03-11] MEDS: GABAPENTIN 300 MG CAP PO SCH (09:50)
[2020-03-11] MEDS: busPIRone HCL 5 MG TAB PO SCH (09:50)
[2020-03-11] MEDS: CARVEDILOL 3.125 MG TAB PO SCH (09:50)
[2020-03-11] MEDS: DEXAMETHASONE INJ 10 MG/ML VIAL IV SCH (09:50)
[2020-03-11] MEDS: MONTELUKAST 10 MG TAB PO SCH (09:50)
[2020-03-11] MEDS: guaiFENesin ER TAB 600 MG TAB PO SCH (09:50)
[2020-03-11] MEDS: SODIUM CHLORIDE 0.9% (FLUSH) 10 ML SYG IV SCH (09:51)
[2020-03-11] MEDS: BIFIDOBACTERIUM INFANTIS 4 MG CAP PO SCH (11:24)
[2020-03-11] MEDS: AZITHROMYCIN IV 500 MG in SODIUM CHLORIDE 0.9% 250ML 250 ML IVPB SCH (11:39)
[2020-03-11] MEDS: cefTRIAXone SODIUM 1 GM in SODIUM CHL 0.9% 50ML MIN-BAG+ 50 ML IVPB SCH (11:40)
[2020-03-11] MEDS: IV SET AND CAP CHANGE INJ INJ SCH (11:40)
[2020-03-11 13:23] VITALS: BP 125/62; TEMP 98; O2SAT 97
[2020-03-11] MEDS ORDERED: ENOXAPARIN SODIUM 80 MG/0.8 ML SYG SUBCU SCH (21:00)
--- NOTE | 2020-03-12 08:07 | DS ---
SUPERVISING PHYSICIAN: Jd Tejeda MD ADMISSION DIAGNOSIS: 1. COVID-19 pneumonitis. 2. Hypertension. 3. Hypothyroidism. 4. Mild intermittent asthma. 5. History of leukemia in remission. 6. Gastroesophageal reflux disease. 7. Osteoporosis. DISCHARGE DIAGNOSIS: 1. COVID-19 pneumonitis. 2. Hypertension. 3. Hypothyroidism. 4. Mild intermittent asthma. 5. History of leukemia in remission. 6. Gastroesophageal reflux disease. 7. Osteoporosis. HOSPITAL COURSE: This is an 79-year-old female who was diagnosed with COVID-19 on 03/05/20. She initially did not have very many symptoms, but over the last couple of days prior to admission, she worsened to the point she came to the Emergency Room. Her temperature was 103. She was given potassium, magnesium and sent home. She followed up with her primary care physician, Dr. Sanders, via Telemedicine and states she was still weak. She was actually in a position at home. She was having diarrhea, fever, cough and extreme weakness. Due to her worsening symptoms, Dr. Sanders requested direct admission. The patient was admitted to the hospital and initial O2 saturation was 92% on room air. It did start to dip down and she required acute therapy. Her shortness of breath and weakness actually improved over the course of the admission. She received Remdesivir, Decadron, empiric azithromycin and ceftriaxone were given as well. The day of discharge, 03/11/20, the patient is alert, oriented and in no distress, however, still on ambulation she dips down to about 86%. She does not really get significantly short of breath with it though. She does meet criteria for home O2. I discussed with her primary care physician, Dr. Sanders, regarding discharge home with oxygen. He was in agreement and requested the patient get home health and followup within one week. He will followup with her on 03/18/20, at 2:15 and [facility] has been contacted for their services as well. I have also ordered additional ceftriaxone to be given q.12h. for the next 5 days as well as Eliquis 2.[address] Sanders can address further anticoagulation after that course of treatment. Activity is as tolerated. She will need to social distance and self-isolate at her home until further recommendations by Dr. Sanders. #[id number] [facility]
== END 2020-03-11 15:30 | disposition home health service (06) | DRG 177 ==
LOC: MS 12:25
PROVIDERS: ADMIT Nurse Practitioner Acute Care; ATTEND Nurse Practitioner
DX: U07.1 COVID-19 (principal); J12.89 Other viral pneumonia; C95.91 Leukemia, unspecified, in remission; E87.6 Hypokalemia; I10 Essential (primary) hypertension; E89.0 Postprocedural hypothyroidism; K21.9 Gastro-esophageal reflux disease without esophagitis; M81.0 Age-related osteoporosis without current pathological fracture; J45.20 Mild intermittent asthma, uncomplicated; E78.5 Hyperlipidemia, unspecified; M19.90 Unspecified osteoarthritis, unspecified site; Z88.3 Allergy status to other anti-infective agents; Z88.0 Allergy status to penicillin; Z88.1 Allergy status to other antibiotic agents; Z88.5 Allergy status to narcotic agent; Z87.891 Personal history of nicotine dependence; Z88.8 Allergy status to other drugs, medicaments and biological substances; Z79.899 Other long term (current) drug therapy

== ENCOUNTER → 2020-03-14 | Outpatient (CLI) | payer MEDICARE, OTHER | LOC: NC 08:39 | PROVIDERS: ATTEND Family Medicine | DX: I11.9 Hypertensive heart disease without heart failure (principal) ==

== ENCOUNTER → 2020-04-04 | Outpatient (CLI) | payer MEDICARE, OTHER ==
--- NOTE | 2020-04-04 16:15 | CT ---
EXAM DESCRIPTION: Chest w/o Contrast CLINICAL HISTORY: 79 years Female, covid19 COMPARISON: Chest x-ray dated 11 March 2020, CT of the chest dated 05 March 2020 TECHNIQUE: Transaxial images were obtained without intravenous contrast media. Sagittal and coronal reconstruction was performed.This exam was performed according to our departmental dose-optimization program, which includes automated exposure control, adjustment of the mA and/or kV according to patient size and/or use of iterative reconstruction technique. FINDINGS: The thyroid is normal in appearance. No pathologic axillary adenopathy is observed. No hilar or mediastinal adenopathy is seen. No pleural fluid is identified. No adrenal masses are detected. Coarse interstitial lung disease is observed most pronounced in the periphery most pronounced in the lung bases. Degenerative changes are seen in the thoracic spine. No pulmonary nodule is detected. IMPRESSION: Coarse interstitial lung disease is observed most pronounced in the periphery The lung bases. This is felt to represent resolving Covid pneumonia. Electronically signed by: Pierre Green MD 04/04/2020 4:13 PM [facility]
== END ==
LOC: CT 10:00
PROVIDERS: ATTEND Family Medicine
DX: U07.1 COVID-19 (principal)

== ENCOUNTER → 2020-07-03 | Outpatient (CLI) | payer MEDICARE, OTHER ==
--- NOTE | 2020-07-03 16:05 | US ---
EXAM DESCRIPTION: Carotid Duplex: ULTRASOUND. CLINICAL HISTORY: 79 years Female OCCLUSION AND STENOSIS OF CAROTID ARTERIES COMPARISON: None. TECHNIQUE: Transcutaneous scanning utilizing mendoza-scale and Doppler modes to evaluate the bilateral carotid systems and vertebral arteries. Percentage of diameter of stenosis or no stenosis recorded will be based upon NASCET criteria. FINDINGS: Peak systolic/end diastolic velocities (CM-Sec) CCA Right 76/9 Left 78/10. ICA Right proximal 57/12, distal 83/13. Left proximal 55/12, mid 72/15. Vertebral Right 52/9 Left 71/13. ECA (PS Only) Right 84 left 65. ICA/CCA peak systolic velocity ratio: Right 1.1 Left 0.9 ICA/CCA end diastolic velocity ratio: Right 1.5 Left 1.6 Vertebral arteries: antegrade flow. Comments: Atherosclerotic calcifications in the common carotid bulbs and proximal ICAs bilaterally. Right common carotid bulb less than 30% area and diameter stenosis. Left common carotid bulb and proximal ICA: Less than 25% diameter and area stenosis. IMPRESSION: 1. Doppler evaluation of the bilateral carotid systems and vertebral arteries shows no hemodynamically significant stenoses (less than 70%). 2. No significant amount of plaque in the carotid arteries bilaterally. Bilateral vertebral arteries showed antegrade-cephalad flow. Electronically signed by: Genaro Uriostegui MD 07/03/2020 4:03 PM [employer]
== END ==
LOC: US 08:55
PROVIDERS: ATTEND Family Medicine
DX: I65.23 Occlusion and stenosis of bilateral carotid arteries (principal)